=== PATIENT | male | born 1995 | race Hispanic/Latino ===

== ENCOUNTER 2018-04-24 20:21 | Emergency (ER) | payer OTHER ==
[2018-04-24 20:29] VITALS: RESP 16
[2018-04-24] MEDS ORDERED: Sodium Chloride 0.9% 50 ML IV ONE (21:23)
[2018-04-24] MEDS ORDERED: Iohexol 300 100 ML IJ ONE (21:23)
[2018-04-24 21:52] LABS: BASO % 0.6 % (0.0-2.0); EOS # 0.2 K/uL (0.0-0.7); EOS % 3.2 % (0.0-4.0); HEMOGLOBIN 14.5 g/dL (12.0-18.0); LYMPH # 2.4 K/uL (1.0-4.3); MEAN CORPUSCULAR HEMOGLOBIN 28.3 pg (27.0-31.0); MEAN CORPUSCULAR HGB CONC 33.7 g/dL (33.0-37.0); MEAN PLATELET VOLUME 7.8 fl (7.2-11.7); MONO # 0.5 K/uL (0.0-0.8); MONO % 8.8 % (0.0-10.0); NEUT # 2.1 K/uL (1.8-7.0); NEUT % 41.4 % (50.0-75.0); NRBC % 0.1 % (0.0-0.0); RBC 5.12 Mil/uL (4.40-5.90); RED CELL DISTRIBUTION WIDTH 12.8 % (11.5-14.5); WHITE BLOOD COUNT 5.1 K/uL (4.8-10.8)
[2018-04-24 22:10] LABS: ALB/GLOB RATIO 1.7 (1.0-2.1); ALBUMIN 4.7 g/dL (3.5-5.0); ALT/SGPT 39 U/L (21-72); AST/SGOT 33 U/L (17-59); BLOOD UREA NITROGEN 20 mg/dl (9-20); CALCIUM 9.4 mg/dL (8.4-10.2); GFR NON-AFRICAN AMERICAN > 60
--- NOTE | 2018-04-24 22:16 | ED PDOC ---
HPI: General Adult Time Seen by Provider: 04/24/18 20:51 Chief Complaint (Nursing): ENT Problem Chief Complaint (Provider): Neck Swelling History Per: Patient Onset/Duration Of Symptoms: Days (x 2) Current Symptoms Are (Timing): Still Present Additional Complaint(s): 22 year old male with a history of bipolar disorder and depression presents to the ED for evaluation of right sided neck swelling that he noticed two days ago. Patient reports the swelling has improved since yesterday and continues to be painless. According to patient, he visited [facility] this morning and they sent him to this ED for evaluation. He admits if it were smaller, it could have been present for longer than two days and he may not have noticed. Denies difficulty with moving neck, trauma, sore throat, runny nose, cough, chills and other swelling. PMD: none Past Medical History Reviewed: Historical Data, Nursing Documentation, Vital Signs Vital Signs: Last Vital Signs Temp 98.1 F 04/24/18 20:26 Pulse 76 04/24/18 20:26 Resp 16 04/24/18 20:26 BP 123/67 04/24/18 20:26 Pulse Ox 98 04/24/18 20:26 - Medical History PMH: Bipolar Disorder, Depression, Fractures (Right arm/ Left ring finger) - Surgical History Surgical History: Tonsillectomy Other surgeries: adenoidectomy - Family History Family History: States: Unknown Family Hx - Social History Current smoker - smoking cessation education provided: Yes Alcohol: Social - Allergies Allergies/Adverse Reactions: Allergies Allergy/AdvReac Type Severity Reaction Status Date / Time cefuroxime [From Ceftin] Allergy URTICARIA Verified 04/24/18 20:29 Review of Systems ROS Statement: Except As Marked, All Systems Reviewed And Found Negative Constitutional: Negative for: Fever, Chills ENT: Positive for: Other (right neck swelling). Negative for: Nose Discharge, Throat Pain, Throat Swelling Respiratory: Negative for: Cough Musculoskeletal: Negative for: Neck Pain Physical Exam - Reviewed Nursing Documentation Reviewed: Yes Vital Signs Reviewed: Yes - Physical Exam Appears: Positive for: Non-toxic, No Acute Distress Head Exam: Positive for: ATRAUMATIC, NORMAL INSPECTION, NORMOCEPHALIC Skin: Positive for: Normal Color, Warm, Dry Eye Exam: Positive for: EOMI, Normal appearance, PERRL Neck: Positive for: Painless ROM (4 cm x 3 cm non-tender, non-mobile round swelling to the right lower sternocleidomastoid area with questionable fluctuance; no surrounding erythema and no other lymphadenopathy) - Laboratory Results Result Diagrams: 04/24/18 21:20 04/24/18 21:20 - ECG O2 Sat by Pulse Oximetry: 98 (RA) Pulse Ox Interpretation: Normal Medical Decision Making Medical Decision Makin:10 Impression: right neck mass Differential diagnoses include but are not limited to: lymphadenopathy, thyroglossal duct cust and tumor Initial Plan: --CBC --CMP --Free T4 --T3 --TSH --CT neck soft tissue w/ contrast --infectious [place] --Blood cx 23:01 -Patient will be endorsed to Dr. Quinteros pending CT, labs and reevaluation. Scribe Attestation: Documented by Karol Jay, acting as a scribe for Anastasia Briones MD. Provider Scribe Attestation: All medical record entries made by the Scribe were at my direction and personally dictated by me. I have reviewed the chart and agree that the record accurately reflects my personal performance of the history, physical exam, medical decision making, and the department course for this patient. I have also personally directed, reviewed, and agree with the discharge instructions and disposition. Disposition - Clinical Impression Clinical Impression: Neck mass - Patient ED Disposition Is Patient to be Admitted: Transfer of Care - Disposition Referrals: Anil Bowers MD [Staff Provider] - Disposition: Transfer of Care Disposition Time: 23:01 Condition: STABLE Patient Signed Over To: Carmelo Quinteros
--- NOTE | 2018-04-24 23:29 | ED PDOC ---
- Laboratory Results Result Diagrams: 04/24/18 21:20 04/24/18 21:20 Lab Results: Total Bilirubin 0.6 mg/dl (0.2-1.3) 04/24/18 21:20 AST 33 U/L (17-59) 04/24/18 21:20 ALT 39 U/L (21-72) 04/24/18 21:20 Alkaline Phosphatase 63 U/L (38-126) 04/24/18 21:20 Total Protein 7.5 G/DL (6.3-8.2) 04/24/18 21:20 Albumin 4.7 g/dL (3.5-5.0) 04/24/18 21:20 Globulin 2.8 gm/dL (2.2-3.9) 04/24/18 21:20 Albumin/Globulin Ratio 1.7 (1.0-2.1) 04/24/18 21:20 - ECG O2 Sat by Pulse Oximetry: 98 (RA) Pulse Ox Interpretation: Normal Medical Decision Making Medical Decision Makin:00 --Patient was endorsed to this provider by Dr. Briones pending CT, evaluation of labs, reevaluation and final disposition. 23:05 CT Neck Soft Tissue FINDINGS: SOFT TISSUES: Posterior to the lower right sternocleidomastoid muscle, lateral to the right internal jugular vein at the level of the thyroid gland; there is demonstration of an approximately 4.3 x 2.5 x 5.4 cm heterogeneous and hypervascular mass. This creates extrinsic compression along the right lateral lower internal jugular vein and splays the lower right sternocleidomastoid muscle laterally. This could represent an infectious process, benign or malignant neoplasm, metastatic lymph node, or hemangioma. ENT consultation is recommended. PHARYNX: Unremarkable appearance of the nasopharynx, oropharyx, and hypopharynx. No pharyngeal mucosal based mass lesions. LARYNX: The larynx is unremarkable. The epiglottis appears normal. RETROPHARYNGEAL SPACE: The retropharyngeal soft tissues appear within normal limits. SALIVARY GLANDS: Unremarkable appearance of the parotid, submandibular, and sublingual glands. LYMPH NODES: There is bilateral posterior chain lymphadenopathy present; more pronounced on the right. THYROID: The thyroid gland is unremarkable. No nodule is evident. BONES: No aggressive appearing osseous lesion. No acute osseous abnormality. SINUSES: Incidental note is made of multiple mucous retention cysts or polyps scattered within the visualized lower maxillary sinuses. The largest retention cyst or polyp measures 1.2 x 1.6 cm in the inferomedial right maxillary sinus. IMPRESSION: 1. Large heterogeneous hypervascular lower right neck mass as described above. An infectious process, benign or malignant neoplasm, metastatic lymph node or hemangioma are thought diagnostic possibilities. ENT consultation is recommended. 2. Bilateral posterior chain lymphadenopathy; more prevalent on the right. 00:[address] Bowers who will see patient tomorrow in his office between the hours of 11 and 12. Provided patient with a disc containing his imaging. Discussed case including findings at length with patient who understands and is aware of need for follow up. Scribe Attestation: Documented by Karol Jay, acting as a scribe for Carmelo Quinteros MD. Provider Scribe Attestation: All medical record entries made by the Scribe were at my direction and personally dictated by me. I have reviewed the chart and agree that the record accurately reflects my personal performance of the history, physical exam, medical decision making, and the department course for this patient. I have also personally directed, reviewed, and agree with the discharge instructions and disposition. Disposition - Clinical Impression Clinical Impression: Neck mass - POA Present On Arrival: None - Disposition Referrals: Anil Bowers MD [Staff Provider] - Disposition: Routine/Home Disposition Time: 00:21 Condition: IMPROVED Additional Instructions: Please go to Dr Bowers's office today as a walk in 11-12pm today (04/26/2018) Instructions: Lymph Node Biopsy Forms: [email or web address] ([place])
[2018-04-24 23:40] LABS: T3 1.24 nmol/L (1.49-2.60)
[2018-04-25 00:58] VITALS: BP 135/78; PULSE 72; TEMP 98.2
--- NOTE | 2018-04-25 10:43 | CT ---
Date of service: 04/24/2018 PROCEDURE: CT NECK WITH CONTRAST HISTORY: Right neck swelling COMPARISON: None available. TECHNIQUE: CT of the neck with intravenous contrast. Coronal and sagittal reformats generated. Intravenous contrast dose: 90 mL Omnipaque 300 Radiation dose: Total exam DLP = 307.8 mGy-cm. This CT exam was performed using one or more of the following dose reduction techniques: Automated exposure control, adjustment of the mA and/or kV according to patient size, and/or use of iterative reconstruction technique. FINDINGS: NASOPHARYNX: Mild adenoid hypertrophy. No evidence for mass. SUPRAHYOID NECK: There is no mass or abnormal enhancement in the oropharynx, oral cavity, parapharyngeal space and retropharyngeal space. INFRAHYOID NECK: There is no mass or abnormal enhancement in the larynx, hypopharynx, and supraglottic space. Vocal cords intact. MASS: At the site of clinically palpable lump in the right lower posterior neck, there is a 2.5 x 5.3 x 3.9 cm heterogeneously enhancing mass with predominantly cystic component laterally and heterogeneous avid enhancement medially. The mass is posterior to the right sternocleidomastoid, lateral to the right internal jugular vein at the level of the right lobe of thyroid. The mass causes mild compression on the lower internal jugular vein and displaces the right sternocleidomastoid laterally. GLANDS: Parotid and submandibular glands unremarkable. Normal size thyroid gland. There are small low-attenuation nodules in the right thyroid lobe. LYMPH NODES: There are multiple enhancing right anterior and posterior triangle lymph nodes, the largest measures 1.1 cm in short axis. CERVICAL SPINE: No fracture or focal lesion. VASCULAR STRUCTURES: Normal intravascular enhancement. OTHER FINDINGS: There are small retention cysts/polyps in the right maxillary sinus. IMPRESSION: 1. 2.5 x 5.3 x 3.9 cm heterogeneously enhancing complex cystic mass with a lateral cystic component and medial heterogeneous hypervascular components in the right lower posterior triangle as described above, the differential considerations include conglomerate necrotizing lymph node mass, benign neoplasm including cystic neurogenic tumors, malignant neoplasm, metastatic lymph node and hemangioma. ENT consultation is advised. 2. Right anterior and posterior triangle lymphadenopathy which may be reactive, infectious, inflammatory or metastatic in etiology. 3. Small nodules in the right thyroid lobe. A dedicated thyroid ultrasound is recommended for complete evaluation of the thyroid gland. A preliminary report was provided by [employer] [facility]. The final report is tagged to the PA review folder, dedicated thyroid ultrasound is recommended on this patient, the thyroid findings were not described on the preliminary report.
[2018-04-25 11:55] VITALS: O2SAT 98
== END 2018-04-25 00:50 | disposition home or self-care (01) ==
LOC: H.ER 20:21
DX: R22.1 Localized swelling, mass and lump, neck (principal); J33.8 Other polyp of sinus
CPT/HCPCS: 70491; 80053; 83605; 84439; 84443; 84480; 85025; 86308; 87040; 99283; Q9967